=== PATIENT | male | born 1975 ===

== ENCOUNTER 2021-10-11 18:26 | Emergency (ER) | payer OTHER ==
[~2021-10-11] VITALS: Ht 170.2 cm; Wt 72.7 kg
[2021-10-11] MEDS ORDERED: normal saline 1000ml 1,000 ML IV ONE ×2 (19:10)
[2021-10-11 21:29] VITALS: BP 132/68
== END 2021-10-11 21:24 | disposition home or self-care (01) ==
LOC: ER 18:27
DX: F10.129 Alcohol abuse with intoxication, unspecified (principal); V89.2XXA Person injured in unspecified motor-vehicle accident, traffic, initial encounter; Y93.89 Activity, other specified; Y92.89 Other specified places as the place of occurrence of the external cause; Y99.8 Other external cause status; Y90.9 Presence of alcohol in blood, level not specified
CPT/HCPCS: 70450; 96360; 99284; J7030